=== PATIENT | female | born 2000 | race Asian ===

== ENCOUNTER 2024-07-12 11:10 | Emergency (ER) | payer MEDICAID ==
[~2024-07-12] VITALS: Ht 167.6 cm; Wt 130.0 kg
[2024-07-12 11:13] VITALS: O2SAT 97
[2024-07-12 11:34] VITALS: TEMP 98.9
[2024-07-12] MEDS: ACETAMINOPHEN 325MG TABLET PO ONE (11:34)
[2024-07-12] MEDS ORDERED: TOPUD PO (13:43)
[2024-07-12 14:50] VITALS: BP 112/80; PULSE 77; RESP 16; O2SAT 99
== END 2024-07-12 14:51 | disposition home or self-care (01) ==
LOC: ER 11:10
DX: S00.03XA Contusion of scalp, initial encounter (principal); V89.2XXA Person injured in unspecified motor-vehicle accident, traffic, initial encounter; Y93.89 Activity, other specified; Y92.89 Other specified places as the place of occurrence of the external cause; Y99.8 Other external cause status
CPT/HCPCS: 99284